=== PATIENT | male | born 1965 | race Asian ===

== ENCOUNTER 2017-10-25 19:41 | Emergency (ER) | payer OTHER ==
[~2017-10-25] VITALS: Ht 167.6 cm; Wt 74.8 kg
[2017-10-25 19:50] VITALS: Ht 167.6 cm; Wt 74.8 kg
[2017-10-25 21:51] VITALS: BP 130/80
== END 2017-10-25 21:57 | disposition home or self-care (01) ==
LOC: ED 19:41
DX: Z77.098 Contact with and (suspected) exposure to other hazardous, chiefly nonmedicinal, chemicals (principal); H57.13 Ocular pain, bilateral